=== PATIENT | male | born 1960 | race Caucasian/White ===

== ENCOUNTER 2024-11-30 20:07 | Inpatient (IN) ==
[2024-11-30 20:33] LABS: ABS Eosinophils 0.1 10^3/uL (0.0-0.5); ABS Lymphocytes 2.3 10^3/uL (1.0-4.8); ABS Monocytes 0.8 10^3/uL (0.0-1.1); ABS Neutrophils 5.8 10^3/uL (1.5-7.6); Eosinophil % 1.2 %; Hematocrit 42.4 % (38-53); Hemoglobin 14.4 g/dL (13.2-16.3); Lymphocyte % 25.7 %; Mean Corpuscular Hemoglobin 30.2 pg (27-33); Mean Corpuscular Volume 88.8 fL (80-97); Mean Platelet Volume 7.5 fL (7.5-11.2); Platelet Count 383 10^3/uL (150-450); Red Blood Count 4.78 10^6/uL (4.06-5.63)
[2024-11-30 20:44] LABS: INR 1.04 (0.85-1.14)
[2024-11-30 21:30] LABS: Albumin 4.1 g/dL (3.5-5.7); Albumin/Globulin Ratio 1.9 (1-3); Calcium 8.7 mg/dL (8.6-10.3); Creatinine, Serum 0.94 mg/dL (0.67-1.17); Globulin 2.2 g/dL (2-4); Potassium 3.8 mmol/L (3.5-5.0); Total Bilirubin 0.3 mg/dL (0.2-1.0); Total Protein 6.3 g/dL (6.4-8.9); eGFR CKD-EPI 89.4 (>60)
[2024-11-30 22:17] LABS: High Sensitivity Troponin 1 Hr 55 pg/mL (<20)
[2024-11-30] MEDS: Iohexol 350 (CONTRAST) 500 ML MDV IV ONE (22:26)
[2024-11-30 23:47] LABS: ABS Eosinophils 0.1 10^3/uL (0.0-0.5); ABS Lymphocytes 2.7 10^3/uL (1.0-4.8); ABS Monocytes 0.9 10^3/uL (0.0-1.1); ABS Neutrophils 5.7 10^3/uL (1.5-7.6); ABS Nucleated RBC 0.01 10^3/ul; Eosinophil % 0.8 %; Hematocrit 41.5 % (38-53); Hemoglobin 14.1 g/dL (13.2-16.3); Lymphocyte % 28.8 %; Mean Corpuscular Hemoglobin 30.1 pg (27-33); Mean Corpuscular Hgb Conc 33.9 g/dL (31-36); Mean Corpuscular Volume 88.8 fL (80-97); Mean Platelet Volume 7.6 fL (7.5-11.2); Nucleated Red Blood Cells % 0.2 %/100WBC (0.0-0.8); Platelet Count 368 10^3/uL (150-450); Red Blood Count 4.67 10^6/uL (4.06-5.63); Red Cell Distribution Width 14.8 % (12-17); White Blood Count 9.4 10^3/uL (3.6-10.2)
[2024-11-30] MEDS: Potassium Chlor 20 meq TAB.ER PO ONE (23:47)
[2024-11-30] MEDS: Heparin 5000 UNITS/ML 1 mL VIAL IV SCH (23:48)
[2024-11-30] MEDS: Heparin DRIP 25,000 UNITS BAG 25,000 UNITS/250 ML BAG IV SCH (23:52)
[2024-12-01] MEDS ORDERED: Metoprolol Tartrate 5 mg VIAL 5 ml VIAL (1 mg/ml) ONE (00:24)
[2024-12-01] MEDS: Metoprolol Tartrate 5 mg VIAL 5 ml VIAL (1 mg/ml) IV ONE ×2 (00:32→00:45)
[2024-12-01 00:45] LABS: Creatinine, Serum 0.78 mg/dL (0.67-1.17); Magnesium 1.9 mg/dL (1.9-2.7); eGFR CKD-EPI 98.4 (>60)
[2024-12-01] MEDS: Diltiazem Infusion @ 5 MG/HR - (MEDTELE ONLY, no titration) IV SCH ×2 (01:35→02:00)
[2024-12-01] MEDS: Lactated Ringers 1000 ml BAG 500 ML IV ONE (01:39)
[2024-12-01] MEDS ORDERED: [UNRECOGNIZED DRUG - REMARK] IV SCH (06:00)
[2024-12-01 06:33] LABS: ABS Basophils 0.1 10^3/uL (0.0-0.1); ABS Eosinophils 0.2 10^3/uL (0.0-0.5); ABS Lymphocytes 3.8 10^3/uL (1.0-4.8); ABS Monocytes 0.9 10^3/uL (0.0-1.1); ABS Nucleated RBC 0.01 10^3/ul; Eosinophil % 2.8 %; Hematocrit 41.7 % (38-53); Hemoglobin 14.3 g/dL (13.2-16.3); Lymphocyte % 47.4 %; Mean Corpuscular Hemoglobin 30.3 pg (27-33); Mean Corpuscular Hgb Conc 34.3 g/dL (31-36); Mean Corpuscular Volume 88.5 fL (80-97); Mean Platelet Volume 7.5 fL (7.5-11.2); Nucleated Red Blood Cells % 0.1 %/100WBC (0.0-0.8); Platelet Count 366 10^3/uL (150-450); Red Blood Count 4.72 10^6/uL (4.06-5.63); Red Cell Distribution Width 14.9 % (12-17)
[2024-12-01 07:43] LABS: Calcium 8.5 mg/dL (8.6-10.3); Creatinine, Serum 0.71 mg/dL (0.67-1.17); Magnesium 2.1 mg/dL (1.9-2.7); Potassium 4.3 mmol/L (3.5-5.0); eGFR CKD-EPI 101.2 (>60)
[2024-12-01] MEDS: Aspirin EC 81 mg TAB.EC (enteric coated) PO SCH (08:43)
[2024-12-01] MEDS: CMC:Ticagrelor 60 mg TAB (NF) PO SCH (08:43)
[2024-12-01] MEDS ORDERED: Metoprolol Tartrate 5 mg VIAL 5 ml VIAL (1 mg/ml) IV PRN (10:10)
[2024-12-01] MEDS: Digoxin IV 0.5 MG/2 ML AMP (0.25 MG/ML) IV SLOW PU ONE (10:33)
[2024-12-01] MEDS: [UNRECOGNIZED DRUG - REMARK] PO SCH (10:34)
[2024-12-01 13:15] LABS: TSH Ultra Thyroid Stim Horm 1.4 mcIU/mL (0.34-5.60)
[2024-12-01] MEDS: Sulfur Hexaflouride MICROSPHR 25 MG VIAL IV PRN (14:56)
[2024-12-01] MEDS: Norepinephrine 4 MG/250mL D5W 4,000 MCG/250 ML BAG IV ONE (20:45)
[2024-12-01] MEDS: Dextrose 50% Syringe 50 ml 25 GM/50 ML SYRINGE ONE (20:45)
[2024-12-02 04:44] LABS: Hematocrit 42.4 % (38-53); Hemoglobin 14.3 g/dL (13.2-16.3); Mean Corpuscular Hemoglobin 29.9 pg (27-33); Mean Corpuscular Hgb Conc 33.7 g/dL (31-36); Mean Corpuscular Volume 88.8 fL (80-97); Mean Platelet Volume 7.4 fL (7.5-11.2); Platelet Count 354 10^3/uL (150-450); Red Blood Count 4.78 10^6/uL (4.06-5.63); Red Cell Distribution Width 14.9 % (12-17); White Blood Count 7.1 10^3/uL (3.6-10.2)
[2024-12-02 05:00] LABS: Activated Partial Thrombo Time 89.6 seconds (26.0-38.0); INR 1.05 (0.85-1.14)
[2024-12-02 05:24] LABS: Calcium 8.8 mg/dL (8.6-10.3); Creatinine, Serum 0.68 mg/dL (0.67-1.17); Magnesium 2.1 mg/dL (1.9-2.7); Potassium 4.3 mmol/L (3.5-5.0); eGFR CKD-EPI 102.5 (>60)
[2024-12-02] MEDS: hydrALAZINE 20 mg/ml 1 ML Vial IV IV SLOW PU PRN (10:39)
[2024-12-02] MEDS ORDERED: Lidocaine 1% MPF 5 ML VIAL ONE (11:50)
[2024-12-02] MEDS: Magnesium Sulfate 2 gm BAG 2 GM/50 ML BAG IVPB ONE (16:21)
[2024-12-02] MEDS: Metoprolol Tartrate 5 mg VIAL 5 ml VIAL (1 mg/ml) IV ONE (16:34)
[2024-12-02 17:06] LABS: Magnesium 2.3 mg/dL (1.9-2.7)
[2024-12-02 18:00] LABS: High Sensitivity Troponin 1 Hr 57 pg/mL (<20)
[2024-12-02] MEDS ORDERED: Metoprolol Tartrate 5 mg VIAL 5 ml VIAL (1 mg/ml) IV PRN (18:24)
[2024-12-03] MEDS ORDERED: Morphine 2 MG/ML SYRINGE IV PRN (03:08)
[2024-12-03 05:07] LABS: ABS Basophils 0.1 10^3/uL (0.0-0.1); ABS Eosinophils 0.2 10^3/uL (0.0-0.5); ABS Lymphocytes 2.6 10^3/uL (1.0-4.8); ABS Monocytes 0.8 10^3/uL (0.0-1.1); ABS Neutrophils 3.5 10^3/uL (1.5-7.6); Eosinophil % 2.5 %; Hemoglobin 14.9 g/dL (13.2-16.3); Lymphocyte % 36.1 %; Mean Corpuscular Hemoglobin 29.9 pg (27-33); Mean Corpuscular Hgb Conc 33.8 g/dL (31-36); Mean Corpuscular Volume 88.3 fL (80-97); Mean Platelet Volume 7.4 fL (7.5-11.2); Platelet Count 366 10^3/uL (150-450); Red Blood Count 4.98 10^6/uL (4.06-5.63); Red Cell Distribution Width 14.7 % (12-17); White Blood Count 7.2 10^3/uL (3.6-10.2)
[2024-12-03 05:33] LABS: Calcium 8.9 mg/dL (8.6-10.3); Creatinine, Serum 0.76 mg/dL (0.67-1.17); Magnesium 2.3 mg/dL (1.9-2.7); Potassium 4.4 mmol/L (3.5-5.0); eGFR CKD-EPI 99.1 (>60)
[2024-12-03] MEDS: Esmolol 10 MG/ML IVPREMIX 2,500 MG/250 ML BAG IV SCH (13:13)
[2024-12-04 05:41] LABS: ABS Basophils 0.1 10^3/uL (0.0-0.1); ABS Eosinophils 0.3 10^3/uL (0.0-0.5); ABS Lymphocytes 2.3 10^3/uL (1.0-4.8); ABS Monocytes 0.8 10^3/uL (0.0-1.1); ABS Neutrophils 3.2 10^3/uL (1.5-7.6); Eosinophil % 3.8 %; Hematocrit 42.5 % (38-53); Hemoglobin 14.6 g/dL (13.2-16.3); Lymphocyte % 35.2 %; Mean Corpuscular Hemoglobin 30.5 pg (27-33); Mean Corpuscular Hgb Conc 34.3 g/dL (31-36); Mean Corpuscular Volume 88.8 fL (80-97); Mean Platelet Volume 7.3 fL (7.5-11.2); Platelet Count 343 10^3/uL (150-450); Red Blood Count 4.79 10^6/uL (4.06-5.63); Red Cell Distribution Width 14.7 % (12-17); White Blood Count 6.7 10^3/uL (3.6-10.2)
[2024-12-04 07:02] LABS: Creatinine, Serum 0.75 mg/dL (0.67-1.17); Magnesium 2.1 mg/dL (1.9-2.7); Potassium 4.6 mmol/L (3.5-5.0); eGFR CKD-EPI 99.5 (>60)
[2024-12-04 12:08] VITALS: BP 133/91
== END 2024-12-04 15:00 | disposition home or self-care (01) | DRG 134 ==
LOC: EDHOLD 20:07 → ED 20:07 → INTOOBSV 23:35 → OBSVTOIN 23:35 → SUATTDRO 23:35 → EDHOLD 12-01 13:29 → ICU 12-01 14:17 → MEDTELE 12-02 14:34 → ICU 12-02 15:30
PROVIDERS: ADMIT Internal Medicine; ATTEND Internal Medicine

== ENCOUNTER 2024-12-19 14:36 | Inpatient (IN) ==
[2024-12-19 15:11] LABS: ABS Basophils 0.1 10^3/uL (0.0-0.1); ABS Eosinophils 0.1 10^3/uL (0.0-0.5); ABS Monocytes 0.9 10^3/uL (0.0-1.1); ABS Neutrophils 5.7 10^3/uL (1.5-7.6); Eosinophil % 1.2 %; Hematocrit 45.3 % (38-53); Hemoglobin 15.7 g/dL (13.2-16.3); Lymphocyte % 30.8 %; Mean Corpuscular Hemoglobin 30.8 pg (27-33); Mean Corpuscular Hgb Conc 34.6 g/dL (31-36); Mean Corpuscular Volume 89.1 fL (80-97); Mean Platelet Volume 7.2 fL (7.5-11.2); Platelet Count 315 10^3/uL (150-450); Red Blood Count 5.09 10^6/uL (4.06-5.63); Red Cell Distribution Width 15.3 % (12-17); White Blood Count 9.8 10^3/uL (3.6-10.2)
[2024-12-19] MEDS: Lactated Ringers 1000 ml BAG IV.FLUID IV ONE (15:14)
[2024-12-19 15:21] LABS: INR 1.28 (0.85-1.14)
[2024-12-19 15:35] LABS: High Sens Troponin Baseline 75 pg/mL (<20)
[2024-12-19 15:43] LABS: ALT 31 U/L (7-52); Albumin 4.4 g/dL (3.5-5.7); Albumin/Globulin Ratio 1.9 (1-3); Alkaline Phosphatase 69 U/L (35-149); Anion Gap 9 mmol/L (2-16); Blood Urea Nitrogen 17 mg/dL (6-24); CO2 Carbon Dioxide 28 mmol/L (22-32); Calcium 9.5 mg/dL (8.6-10.3); Chloride 102 mmol/L (101-111); Creatinine, Serum 1.12 mg/dL (0.67-1.17); Globulin 2.3 g/dL (2-4); Glucose 100 mg/dL (70-100); Sodium 139 mmol/L (135-145); Total Bilirubin 0.6 mg/dL (0.2-1.0); Total Protein 6.7 g/dL (6.4-8.9); eGFR CKD-EPI 72.5 (>60)
[2024-12-19 16:35] LABS: High Sensitivity Troponin 1 Hr 55 pg/mL (<20)
[2024-12-19 18:25] LABS: Potassium Redraw 4.6 mmol/L (3.5-5.0)
[2024-12-19] MEDS: Enoxaparin 100 MG/ML SYR SUBCUT SCH (20:48)
[2024-12-20 04:34] LABS: ABS Basophils 0.1 10^3/uL (0.0-0.1); ABS Eosinophils 0.2 10^3/uL (0.0-0.5); ABS Lymphocytes 3.4 10^3/uL (1.0-4.8); ABS Monocytes 0.6 10^3/uL (0.0-1.1); ABS Neutrophils 2.6 10^3/uL (1.5-7.6); Eosinophil % 3.4 %; Hematocrit 41.6 % (38-53); Hemoglobin 14.3 g/dL (13.2-16.3); Lymphocyte % 49.2 %; Mean Corpuscular Hemoglobin 30.2 pg (27-33); Mean Corpuscular Hgb Conc 34.2 g/dL (31-36); Mean Corpuscular Volume 88.3 fL (80-97); Nucleated Red Blood Cells % 0.1 %/100WBC (0.0-0.8); Platelet Count 277 10^3/uL (150-450); Red Blood Count 4.71 10^6/uL (4.06-5.63); Red Cell Distribution Width 15.1 % (12-17); White Blood Count 6.9 10^3/uL (3.6-10.2)
[2024-12-20 05:15] LABS: Albumin 3.6 g/dL (3.5-5.7); C Reactive Protein 1.49 mg/L (<8.01); Calcium 8.7 mg/dL (8.6-10.3); Creatinine, Serum 0.83 mg/dL (0.67-1.17); Globulin 1.8 g/dL (2-4); Potassium 4.4 mmol/L (3.5-5.0); Total Bilirubin 0.8 mg/dL (0.2-1.0); Total Protein 5.4 g/dL (6.4-8.9); eGFR CKD-EPI 96.5 (>60)
[2024-12-20] MEDS: Aspirin EC 81 mg TAB.EC (enteric coated) PO SCH (08:56)
[2024-12-20] MEDS: Enoxaparin 100 MG/ML SYR SUBCUT SCH (08:57)
[2024-12-21 05:46] LABS: Calcium 8.7 mg/dL (8.6-10.3); Creatinine, Serum 0.87 mg/dL (0.67-1.17); Magnesium 1.9 mg/dL (1.9-2.7); Potassium 4.5 mmol/L (3.5-5.0); eGFR CKD-EPI 95.2 (>60)
[2024-12-22 04:51] LABS: ABS Basophils 0.1 10^3/uL (0.0-0.1); ABS Eosinophils 0.3 10^3/uL (0.0-0.5); ABS Lymphocytes 2.3 10^3/uL (1.0-4.8); ABS Monocytes 0.7 10^3/uL (0.0-1.1); ABS Neutrophils 3.3 10^3/uL (1.5-7.6); Eosinophil % 4.6 %; Hematocrit 41.9 % (38-53); Hemoglobin 14.3 g/dL (13.2-16.3); Lymphocyte % 34.4 %; Mean Corpuscular Hgb Conc 34.1 g/dL (31-36); Mean Corpuscular Volume 88.1 fL (80-97); Mean Platelet Volume 7.2 fL (7.5-11.2); Nucleated Red Blood Cells % 0.1 %/100WBC (0.0-0.8); Platelet Count 266 10^3/uL (150-450); Red Blood Count 4.76 10^6/uL (4.06-5.63); White Blood Count 6.7 10^3/uL (3.6-10.2)
[2024-12-22 05:36] LABS: Calcium 8.6 mg/dL (8.6-10.3); Creatinine, Serum 0.84 mg/dL (0.67-1.17); Magnesium 1.8 mg/dL (1.9-2.7); Potassium 4.4 mmol/L (3.5-5.0); eGFR CKD-EPI 96.2 (>60)
[2024-12-22] MEDS ORDERED: ceFAZolin 2 GM PREMIX 2 GM/50 ML BAG ONE (08:08)
[2024-12-22] MEDS: Magnesium Sulfate 2 gm BAG 2 GM/50 ML BAG IVPB ONE (08:08)
[2024-12-22] MEDS ORDERED: Midazolam 5 mg/5 ml VIAL 1 mg/ml 5 ml VIAL (5 mg) ONE ×2 (09:16→09:19)
[2024-12-22] MEDS ORDERED: fentaNYL 100 mcg/2 ml 50 MCG/ML VIAL ONE (09:16)
[2024-12-22] MEDS ORDERED: Lidocaine 1% VIAL 10 MG/ML 30 ML VIAL ONE (09:19)
[2024-12-22] MEDS ORDERED: Naloxone 0.4 mg VIAL 0.4 mg/ml 1 ml VIAL ONE (09:19)
[2024-12-22] MEDS ORDERED: Iohexol 300 (CONTRAST) 10 ML SDV ONE (09:19)
[2024-12-22] MEDS ORDERED: Flumazenil 0.5 mg/5 ml 0.1 MG/ML 5 ml VIAL ONE (09:19)
[2024-12-22] MEDS: ceFAZolin 2 GM PREMIX 2 GM/50 ML BAG IV ONE (09:50)
[2024-12-22] MEDS: ceFAZolin SYR FLUSH 1 GM/10 ML for pocket flush (cardiology) FLUSH ONE (10:42)
[2024-12-22] MEDS: fentaNYL 100 mcg/2 ml 50 MCG/ML VIAL IV SLOW PU ONE (10:43)
[2024-12-22] MEDS: Midazolam 10 mg/10 ml VIAL 1 mg/ml 10 ml VIAL (10 mg) IV SLOW PU ONE (10:43)
[2024-12-22] MEDS: ceFAZolin VIAL 1 GM in NS 0.9% 50 ML 50 ML IVPB SCH (14:25)
[2024-12-22 14:29] VITALS: BP 123/85
[2024-12-22] MEDS ORDERED: ceFAZolin VIAL 1 GM in NS 0.9% 50 ML 50 ML IVPB SCH (18:00)
== END 2024-12-22 14:34 | disposition home or self-care (01) | DRG 171 ==
LOC: EDHOLD 14:36 → ED 14:36 → SUATTDRO 16:46 → ICU 17:40
PROVIDERS: ADMIT Student in an Organized Health Care Education/Training Program; ATTEND Student in an Organized Health Care Education/Training Program